=== PATIENT | male | born 1990 | race Caucasian/White ===

== ENCOUNTER 2018-04-28 18:48 | Emergency (ER) | payer OTHER, SELFPAY ==
[2018-04-28 18:51] VITALS: BP 136/73; PULSE 72; RESP 15; TEMP 36.5; O2SAT 98; BMI 25.1
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
[2018-04-28] MEDS: HYDROCODONE/ACET 5/325 TABLET 1 TAB PO (19:22)
[2018-04-28] MEDS: IBUPROFEN 400 MG TABLET 800 MG PO (19:22)
[2018-04-28] MEDS: LIDOCAINE/PRILOCAINE 5 GM TOP (20:44)
[2018-04-28 22:09] VITALS: BP 134/74; PULSE 70; TEMP 37.2; O2SAT 95
[2018-04-28] MEDS: cephALEXin 250 MG PREPACK 1 BOTTLE MISC (22:27)
== END 2018-04-28 22:33 | disposition home or self-care (01) ==
PROVIDERS: Emergency Provider Internal Medicine
DX: S61.412A Laceration without foreign body of left hand, initial encounter (principal); S61.012A Laceration without foreign body of left thumb without damage to nail, initial encounter; S61.211A Laceration without foreign body of left index finger without damage to nail, initial encounter; S61.215A Laceration without foreign body of left ring finger without damage to nail, initial encounter; W20.8XXA Other cause of strike by thrown, projected or falling object, initial encounter
CPT/HCPCS: 12002; 73130; 99283